=== PATIENT | male | born 1940 | race Caucasian/White ===

== ENCOUNTER 2017-04-24 09:06 | Emergency (ER) | payer MEDICARE, OTHER ==
[~2017-04-24] VITALS: Ht 188 cm; Wt 105.0 kg
[2017-04-24 09:07] VITALS: BP 133/73; PULSE 68; RESP 14; TEMP 98.4; O2SAT 97
[2017-04-24 10:29] VITALS: BP 149/79; PULSE 57; RESP 18; O2SAT 97
[2017-04-24] MEDS ORDERED: ATOR40TA16 PO (10:35)
[2017-04-24] MEDS ORDERED: VITA2000 PO (10:35)
[2017-04-24] MEDS ORDERED: EZET10 PO (10:35)
[2017-04-24] MEDS ORDERED: RAMI5CAP PO (10:35)
[2017-04-24] MEDS ORDERED: METO25TA3 PO (10:35)
[2017-04-24] MEDS ORDERED: ASPI-516 CHEW (10:35)
[2017-04-24] MEDS ORDERED: CELE200C PO (10:35)
[2017-04-24] MEDS ORDERED: PLAV75TA29 PO (10:35)
[2017-04-24] MEDS ORDERED: MEMA21CA PO (10:35)
[2017-04-24] MEDS ORDERED: MULTTAB67 PO (10:35)
--- NOTE | 2017-04-24 11:03 | PD ---
HPI Chief Complaint: Fall Time Seen by Provider: 10:51 Travel History International Travel<30 days: No Contact w/Intl Traveler<30days: No Traveled to known affect area: No History of Present Illness HPI 77 y/o male presents after he states he slipped on the floor and hit his right hip area on the tub. He did not hit his head or black out. He states in terms of blood thinner medication he only takes a baby aspirin. Quality pain is sharp. Severity is moderate. Pain is worse with movement. He denies any other concurrent complaints. He denies other modifying factors other than movement. PFSH Past Medical History Cardiac Catheterization: Yes Cardiovascular Problems: Yes ([place]) High Cholesterol: Yes Chest Pain: Yes Cerebrovascular Accident: Yes ([place]) Dementia: Yes (MODERATE) Diminished Hearing: No Hypertension: Yes Myocardial Infarction: Yes Tetanus Vaccination: Unknown Influenza Vaccination: No Past Surgical History Appendectomy: Yes Coronary Stent: Yes Tonsillectomy: Yes Social History Alcohol Use: No Tobacco Use: No Substance Use: No Allergies-Medications (Allergen,Severity, Reaction): Coded Allergies: No Known Allergies (Unverified , 04/24/17) Reported Meds & Prescriptions Reported Meds & Active Scripts Active Reported Multiple Vitamin 1 Tab 1 Tab PO DAILY Atorvastatin (Atorvastatin Calcium) 40 Mg Tab 40 Mg PO HS Vitamin D3 (Cholecalciferol) 2,000 Unit Cap 2,000 Units PO DAILY Aspirin 81 Mg Chew 81 Mg CHEW DAILY Ramipril 5 Mg Cap 5 Mg PO DAILY Plavix (Clopidogrel Bisulfate) 75 Mg Tab 75 Mg PO DAILY Zetia (Ezetimibe) 10 Mg Tab 10 Mg PO DAILY Review of Systems Except as stated in HPI: all other systems reviewed are Neg Physical Exam Narrative GENERAL: Well-nourished, well-developed patient. SKIN: Warm and dry. HEAD: Normocephalic and atraumatic. EYES: No injection or drainage. ENT: No nasal drainage noted. NECK: Supple, trachea midline. Nontender in midline CARDIOVASCULAR: Regular rate and rhythm RESPIRATORY: Breath sounds equal bilaterally. No accessory muscle use. GASTROINTESTINAL: Abdomen soft, tender to right lower lateral wall with large ecchymosis, nondistended. EXTREMITIES: No edema. Pain to upper right lateral hip area BACK: Nontender without obvious deformity. NEUROLOGICAL: Awake and alert. Moves all extremities and sensory grossly within normal limits. Normal speech. Data Data Last Documented VS Vital Signs Date Time Temp Pulse Resp B/P (MAP) Pulse Ox O2 Delivery O2 Flow Rate FiO2 04/24/17 10:35 Room Air 04/24/17 10:29 57 18 149/79 (102) 97 04/24/17 09:07 98.4 Orders Orders Hip, Uni(Ap&Lat) W Ap Pelvis (04/24/17 ) Complete Blood Count With Diff (04/24/17 10:58) Basic Metabolic Panel (Bmp) (04/24/17 10:58) Urinalysis - C+S If Indicated (04/24/17 10:58) Ct Abd/Pel W Iv Contrast(Rout) (04/24/17 ) Iv Access Insert/Monitor (04/24/17 10:58) Act Partial Throm Time (Ptt) (04/24/17 10:58) Prothrombin Time / Inr (Pt) (04/24/17 10:58) Urine Culture (04/24/17 12:01) Sodium Chlorid 0.9% 500 Ml Inj (Ns 500 M (04/24/17 12:15) Iohexol 350 Inj (Omnipaque 350 Inj) (04/24/17 13:08) Ed Discharge Order (04/24/17 14:23) Labs Laboratory Tests Test 04/24/17 11:25 04/24/17 11:30 White Blood Count 8.2 TH/MM3 Red Blood Count 4.20 MIL/MM3 Hemoglobin 13.3 GM/DL Hematocrit 39.8 % Mean Corpuscular Volume 94.8 FL Mean Corpuscular Hemoglobin 31.8 PG Mean Corpuscular Hemoglobin Concent 33.5 % Red Cell Distribution Width 13.6 % Platelet Count 175 TH/MM3 Mean Platelet Volume 8.9 FL Neutrophils (%) (Auto) 74.9 % Lymphocytes (%) (Auto) 14.5 % Monocytes (%) (Auto) 8.8 % Eosinophils (%) (Auto) 1.4 % Basophils (%) (Auto) 0.4 % Neutrophils # (Auto) 6.1 TH/MM3 Lymphocytes # (Auto) 1.2 TH/MM3 Monocytes # (Auto) 0.7 TH/MM3 Eosinophils # (Auto) 0.1 TH/MM3 Basophils # (Auto) 0.0 TH/MM3 CBC Comment DIFF FINAL Differential Comment Prothrombin Time 11.0 SEC Prothromb Time International Ratio 1.1 RATIO Activated Partial Thromboplast Time 23.7 SEC Blood Urea Nitrogen 22 MG/DL Creatinine 1.44 MG/DL Random Glucose 99 MG/DL Calcium Level 9.4 MG/DL Sodium Level 142 MEQ/L Potassium Level 5.3 MEQ/L Chloride Level 110 MEQ/L Carbon Dioxide Level 29.3 MEQ/L Anion Gap 3 MEQ/L Estimat Glomerular Filtration Rate 47 ML/MIN Urine Color YELLOW Urine Turbidity CLEAR Urine pH 6.0 Urine Specific [place] 1.015 Urine Protein NEG mg/dL Urine Glucose (UA) NEG mg/dL Urine Ketones NEG mg/dL Urine Occult Blood NEG Urine Nitrite POS Urine Bilirubin NEG Urine Urobilinogen LESS THAN 2.0 MG/DL Urine Leukocyte Esterase SMALL Urine RBC 1 /hpf Urine WBC 6 /hpf Urine Mucus FEW /lpf Microscopic Urinalysis Comment CULT NOT INDICATED MDM Medical Decision Making Medical Screen Exam Complete: Yes Emergency Medical Condition: Yes Medical Record Reviewed: Yes (past history confirmed) Interpretation(s) CBC & BMP Diagram 04/24/17 11:25 Calcium Level 9.4 Last 24 hours Impressions Hip and Pelvis X-Ray 04/24/17 0000 Signed Impressions: Service Date/Time: Monday, April 24, 2017 10:37 - CONCLUSION: 1. Right total hip arthroplasty. 2. No fracture. 3. Atherosclerotic calcification of the regional vasculature and vas deferens. Beni Damon MD Abdomen/Pelvis CT 04/24/17 0000 Signed Impressions: Service Date/Time: Monday, April 24, 2017 12:55 - CONCLUSION: 1. Small subcentimeter irregular hypodensity in the peripheral mid to inferior posterior right kidney with subtle adjacent stranding. This is nonspecific but may reflect a small ruptured cyst or focal subacute renal injury. No evidence for active hemorrhage or other acute traumatic abnormality. Aj Fontenot MD Differential Diagnosis Fracture, hematoma, strain Narrative Course Will check hip x-ray and reevaluate Hip x-ray without overt fracture Will check labs and CT and reevaluate CT shows possible subacute renal injury, urine without blood, hemoglobin stable , creatinine is 1.4, will discuss with trauma surgery Patient denies any new complaints, all questions answered. Patient knows that follow up is incumbent on them and to return to the emergency room immediately if new or worsening symptoms develop. Patient given strict return precautions, vitals reviewed and are normal, agrees to further workup as an outpatient and wanting to go home Physician Communication Physician Communication dr lewis states if ok with urology patient can go home dr lake states can follow in the office Diagnosis Primary Impression: Abdominal wall contusion Qualified Codes: S30.1XXA - Contusion of abdominal wall, initial encounter Additional Impressions: Renal injury, closed Qualified Codes: S37.001A - Unspecified injury of right kidney, initial encounter Renal insufficiency Referrals: Jhony Lake MD call for appointment this week Patient Instructions: General Instructions Additional Instructions: tylenol as needed, return as needed Med/Other Pt SpecificInfo: No Change to Meds Disposition: 01 DISCHARGE HOME Condition: Stable Eda Summers MD Apr 24, 2017 11:03
--- NOTE | 2017-04-24 11:04 | RADRPT ---
EXAM DATE/TIME: 04/24/2017 10:37 [facility] COMPARISON: No previous studies available for comparison. INDICATIONS : Right hip and pelvis pain due to fall on 04/23/17. MEDICAL HISTORY : None. SURGICAL HISTORY : Total knee replacement, left. Total knee replacement, right. Total right hip. ENCOUNTER: Initial ACUITY: 1 day PAIN SCORE: 7/10 LOCATION: Right Hip and pelvis. FINDINGS: Examination of the right hip was performed with AP Pelvis. Right total hip arthroplasty. Both the fem oral and acetabular components are appropriately positioned. Atherosclerotic calcification of the reg ional vasculature and probably the vas deferens as well. Degenerative spurring in the lower lumbar sp ine. Osseous structures are otherwise intact. CONCLUSION: 1. Right total hip arthroplasty. 2. No fracture. 3. Atherosclerotic calcification of the regional vasculature and vas deferens. Beni Damon MD on April 24, 2017 at 11:00 Board Certified Radiologist. This report was verified electronically.
[2017-04-24 11:41] LABS: AUTOMATED NEUTROPHIL # 6.1 TH/MM3 (1.8-7.7); BASOPHIL % 0.4 % (0.0-2.0); EOSINOPHIL # 0.1 TH/MM3 (0-0.4); EOSINOPHIL % 1.4 % (0.0-4.0); HEMATOCRIT 39.8 % (39.0-51.0); HEMO FLAGS DIFF FINAL; LYMPH % 14.5 % (9.0-44.0); LYMPHOCYTE # 1.2 TH/MM3 (1.0-4.8); MEAN CELL VOLUME 94.8 FL (80.0-100.0); MEAN CORPUSCULAR HEMOGLOBIN 31.8 PG (27.0-34.0); MEAN CORPUSCULAR HGB CONC 33.5 % (32.0-36.0); MONO % 8.8 % (0.0-8.0); NEUT % 74.9 % (16.0-70.0); PLATELET COUNT 175 TH/MM3 (150-450); RED CELL DISTRIBUTION WIDTH 13.6 % (11.6-17.2); WHITE BLOOD COUNT 8.2 TH/MM3 (4.0-11.0)
[2017-04-24 11:54] LABS: APTT (PATIENT) 23.7 SEC (24.3-30.1); INTERNATIONAL NORMALIZED RATIO 1.1 RATIO
[2017-04-24 11:56] LABS: BLOOD, URINE NEG (NEG); COMMENT (UR) CULT NOT INDICATED; CULTURE IF INDICATED CULT NOT INDICATED; GLUCOSE,URINE NEG (NEG); KETONE, URINE NEG (NEG); MUCUS URINE FEW /lpf (OCC); NITRITE,URINE POS (NEG); URINE COLOR YELLOW (YELLW/STRAW)
[2017-04-24 11:57] LABS: BICARBONATE 29.3 MEQ/L (21.0-32.0); POTASSIUM 5.3 MEQ/L (3.5-5.1)
[2017-04-24] MEDS ORDERED: SODIUM CHLORID 0.9% 500 ML INJ 500 ML IV ONE (12:15)
[2017-04-24] MEDS ORDERED: IOHEXOL 350 MG/ML 10 ML VIAL (for RAD DIAG) IVCONTRAST ONE (13:08)
[2017-04-24 13:25] VITALS: BP 157/77; PULSE 56; RESP 16; O2SAT 97
--- NOTE | 2017-04-24 13:54 | RADRPT ---
EXAM DATE/TIME: 04/24/2017 12:55 [facility] COMPARISON: No previous studies available for comparison. INDICATIONS : Fall yesterday, right side abdomen pain. IV CONTRAST: 75 cc Omnipaque 350 (iohexol) IV ORAL CONTRAST: No oral contrast ingested. RADIATION DOSE: 10.0 CTDIvol (mGy) MEDICAL HISTORY : Cardiovascular disease. Hypertension. SURGICAL HISTORY : Appendectomy. ENCOUNTER: Initial ACUITY: 2 days PAIN SCALE: 4/10 LOCATION: Right flank TECHNIQUE: Volumetric scanning of the abdomen and pelvis was performed. Using automated exposure control and ad justment of the mA and/or kV according to patient size, radiation dose was kept as low as reasonably achievable to obtain optimal diagnostic quality images. DICOM format image data is available electro nically for review and comparison. FINDINGS: LOWER LUNGS: Minimal bibasilar airspace consolidation. LIVER: Homogeneous density without lesion. There is no dilation of the biliary tree. No calcified gall[place] es. SPLEEN: Normal size without lesion. PANCREAS: Within normal limits. KIDNEYS: Subcentimeter irregular hypodense lesion in the mid to inferior posterior right kidney with subtle ad jacent stranding. No significant associated perfusion defect in this region or obvious renal lacerati on. Kidneys otherwise unremarkable without evidence for hydronephrosis or radiopaque renal calculi. ADRENAL GLANDS: Within normal limits. VASCULAR: There is no aortic aneurysm. BOWEL/MESENTERY: The stomach, small bowel, and colon demonstrate no acute abnormality. There is no free intraperitone al air or fluid. ABDOMINAL WALL: Within normal limits. RETROPERITONEUM: There is no lymphadenopathy. BLADDER: No wall thickening or mass. REPRODUCTIVE: Within normal limits. INGUINAL: There is no lymphadenopathy or hernia. MUSCULOSKELETAL: Osseous structures are intact without acute bony fracture or focal bony destruction. There is a right hip arthroplasty in place. CONCLUSION: 1. Small subcentimeter irregular hypodensity in the peripheral mid to inferior posterior right kidney with subtle adjacent stranding. This is nonspecific but may reflect a small ruptured cyst or focal s ubacute renal injury. No evidence for active hemorrhage or other acute traumatic abnormality. Aj Fontenot MD on April 24, 2017 at 13:39 Board Certified Radiologist. This report was verified electronically.
[2017-04-24 15:03] VITALS: BP 150/70
== END 2017-04-24 15:06 | disposition home or self-care (01) ==
LOC: NEPC 09:06
DX: S30.1XXA Contusion of abdominal wall, initial encounter (principal); S37.001A Unspecified injury of right kidney, initial encounter; N39.0 Urinary tract infection, site not specified; B95.7 Other staphylococcus as the cause of diseases classified elsewhere; W01.198A Fall on same level from slipping, tripping and stumbling with subsequent striking against other object, initial encounter
CPT/HCPCS: 73502; 74177; 80048; 81001; 85025; 85610; 85730; 86403; 87077; 87086; 87186; 96360; 99285; J7040; Q9967